=== PATIENT | female | born 1995 | race Caucasian/White ===

== ENCOUNTER 2020-01-18 13:53 | Inpatient (IN) | payer SELFPAY ==
[~2020-01-18] VITALS: Ht 167.6 cm; Wt 106.1 kg
[2020-01-18 14:03] VITALS: BP_SYST 141
--- NOTE | 2020-01-18 14:03 | NUR ---
Patient to ER bed 3 to gown for evaluation. Side rails up. Report given to JAK Menjivar.
[2020-01-18] MEDS ORDERED: NACL 0.9% 1,000 ML IV ONE (14:05)
[2020-01-18] MEDS ORDERED: ONDANSETRON HCL 4 MG/2 ML VIAL IVP ONE ×2 (14:15→17:15)
[2020-01-18] MEDS ORDERED: MORPHINE 2 MG/ML INJ. SYRINGE IVP ONE (14:15)
--- NOTE | 2020-01-18 14:15 | NUR ---
MD MCDONALD AT BEDSIDE ASSESSING PT.
--- NOTE | 2020-01-18 14:25 | NUR ---
RN ATTEMPTING TO OBTIAN BLOOD AND INSERT IV. 1 ST ATTEMPT VEIN BLEW. MOTHER AT BEDSIDE ASKS FOR ANOTHER RN TO TRY. RN REASSURED THE MOTHER THAT RN IS COMPETENT AND WILL NEED TO OBTAIN IV ACCESS. MOTHER CONTINUES TO PUT PRESSURE ON THE RN BY STANDING OVER HIM AND COMMENTING
[2020-01-18] MEDS ORDERED: MORPHINE 4 MG/ML INJ. SYRINGE IM ONE (14:45)
[2020-01-18] MEDS ORDERED: ONDANSETRON HCL 4 MG/2 ML VIAL IM ONE (14:45)
--- NOTE | 2020-01-18 14:57 | NUR ---
JAK HERRERA OBTAINED IV ACCESS OF 22G INTO THE RIGHT FA. BLOOD DRAWN AND PAIN MED GIVEN BEFORE PT WENT TO CT. HCG URINE NEGATIVE.
[2020-01-18 15:07] LABS: BASOPHILS % (AUTO) 0.2 % (0.0-2.0); EOSINOPHILS % (AUTO) 0.2 % (0.0-4.0); HEMATOCRIT 41.6 % (36-48); HEMOGLOBIN 14.2 g/dL (12.0-16.0); LYMPHOCYTES # (AUTO) 2.2 K/uL (1.0-5.5); MEAN CORPUSCULAR HEMOGLOBIN 27 pg (27-31); MEAN CORPUSCULAR HGB CONC 34 % (32-36); MEAN CORPUSCULAR VOLUME 79 fL (79.0-98.0); MONOCYTES # (AUTO) 1.3 K/uL (0.0-1.0); MONOCYTES % (AUTO) 8.5 % (1.7-9.3); NEUTROPHILS # (AUTO) 11.3 K/uL (1.8-7.7); NEUTROPHILS % (AUTO) 76.1 % (40.0-70.0); PLATELET COUNT (AUTO) 550 K/uL (130-430); RED BLOOD CELL COUNT(AUTO) 5.28 MIL/uL (4.2-6.2); RED CELL DISTRIBUTION WIDTH 12.1 % (9.0-15.0); WHITE BLOOD COUNT (AUTO) 14.9 K/uL (4.8-10.8)
[2020-01-18 15:16] LABS: CALCIUM 9.5 mg/dL (8.4-11.0); CREATININE 0.77 mg/dL (0.55-1.30)
[2020-01-18 15:19] LABS: POTASSIUM 2.7 mmol/L (3.5-5.1)
[2020-01-18 15:21] LABS: PROTHROMBIN TIME 10.5 SECS (9.5-12.5)
[2020-01-18 15:25] LABS: COLOR,URINE YELLOW (YELLOW); GLUCOSE,URINE NEGATIVE (NEGATIVE); KETONES,URINE 3+ (NEGATIVE); LEUKOCYTE ESTERASE ,URINE 1+ (NEGATIVE); NITRITE, URINE NEGATIVE (NEGATIVE); PROTEIN URINE 1+ (NEGATIVE); UROBILINOGEN,URINE 0.2 (0.2-1.0)
[2020-01-18 15:27] LABS: ALBUMIN 3.9 g/dL (3.4-4.8)
[2020-01-18] MEDS ORDERED: LEVOFLOXACIN 500 MG/D5W 100 ML IV ONE (15:30)
[2020-01-18] MEDS ORDERED: KCL 20 mEq in 100 mL (PREMIX) 100 ML IV ONE (15:30)
[2020-01-18] MEDS ORDERED: NACL 0.9% 2,000 ML IV ONE (15:30)
[2020-01-18] MEDS ORDERED: INSULIN REGULAR, HUMAN 10 UNITS/0.1 ML INJ IVP ONE (15:30)
[2020-01-18 15:38] LABS: BILIRUBIN,URINE NEGATIVE (NEGATIVE); BLOOD, URINE TRACE (NEGATIVE); CLARITY/URINE HAZY (CLEAR)
[2020-01-18 15:39] LABS: BACTERIA,URINE FEW /HPF (None Seen); RBC,URINE NONE SEEN /HPF (0-3)
[2020-01-18 15:40] LABS: MUCUS,URINE None Seen /LPF (None Seen)
--- NOTE | 2020-01-18 16:48 | NUR ---
Shante MACIAS started by RN @ 6249, completed @ 4993
[2020-01-18] MEDS ORDERED: MORPHINE 4 MG/ML INJ. SYRINGE IVP ONE (17:15)
--- NOTE | 2020-01-18 17:22 | NUR ---
Orders received from Dr. Anna, entered by RN. Called for bed assignment.
--- NOTE | 2020-01-18 17:26 | NUR ---
Patient will be admitted to care of Dr. Anna. Admitted to Tele unit. Will go to room 100B. Belongings list completed. Complete and up to date summary report printed. SBAR report to be given at bedside with opportunity for questions.
[2020-01-18] MEDS ORDERED: ONDANSETRON HCL 4 MG/2 ML VIAL IVP PRN (17:30)
[2020-01-18] MEDS ORDERED: DEXTROSE 50%-WATER 50 ML DISP.SYRIN IVP PRN (17:30)
[2020-01-18] MEDS ORDERED: D5W 1,000 ML IV PRN (17:30)
[2020-01-18] MEDS ORDERED: GLUCOSE 15 GM GEL (in 37.5 GM TUBE) PO PRN (17:30)
--- NOTE | 2020-01-18 17:50 | NUR ---
Maria Eugenia MACIAS started by RN @ 3654, completed @ 3255
[2020-01-18 18:04] VITALS: BP_SYST 153
--- NOTE | 2020-01-18 18:04 | NUR ---
admission: Received from ER on a gurney with the diagnosis of Dehydration, hypokalemia. Oriented x4. Oriented to room, call light within reach. Safety precautions initiated.
[2020-01-18] MEDS ORDERED: HYDR12.55 PO (18:21)
[2020-01-18] MEDS ORDERED: GLIP5TAB26 PO (18:21)
[2020-01-18] MEDS: METOCLOPRAMIDE HCL 10 MG/2 ML VIAL IVP SCH ×2 (18:27→23:43)
[2020-01-18] MEDS: FAMOTIDINE PF 20 MG/2 ML VIAL IVP SCH (18:28)
[2020-01-18] MEDS: NACL 0.9% 1,000 ML IV SCH (18:31)
[2020-01-18] MEDS ORDERED: GLIP10TA11 PO (18:47)
[2020-01-18] MEDS ORDERED: LISI-209 PO (18:47)
--- NOTE | 2020-01-18 18:48 | NUR ---
Patient is awake and oriented. Family at bedside. Pain is controlled at this time. Still nauseated. Medicated. IVF started. On clear liquid diet. Oriented to the room set up and call light use. Safety precautions in place. Call light within reach. Will endorse.
--- NOTE | 2020-01-18 20:46 | NUR ---
PAGED I PAGED DR QUINONES I SPOKE WITH CRISTIAN ENG
--- NOTE | 2020-01-18 21:00 | NUR ---
Opening notes Pt asleep, easily arousable. BP elevated 162/86, pt c/o severe abd pain and N/V. IVF infusing at ordered rate R FA 22G no s/s infiltration. Oriented to call light use. Medicated with Zofran 4mg IVP for N/V. Pt assisted to bathroom and pt voided. Mom at bedside. Call light within reach. To monitior.
[2020-01-18] MEDS: INSULIN REGULAR, HUMAN 100 UNITS/ML, 10 ML VIAL (humuLIN R) SUBCUT PRN (21:06)
--- NOTE | 2020-01-18 21:14 | NUR ---
PAGED I PAGED DR. QUINONES @ 2113 I SPOKE WITH EDD QUINONES CALLED BACK @ 2118
[2020-01-18 21:20] VITALS: BP_SYST 162
--- NOTE | 2020-01-18 21:25 | NUR ---
CALLED BACK Received call from Dr. Anna. Received order for pain med Dilaudid 1mg IVP Q4PRN and K rider w/ Lidocaine and UDS. Will carry out orders.
[2020-01-18] MEDS: HYDROmorphone 1 MG INJ. 1 MG/ML AMPUL IVP PRN (22:06)
[2020-01-18] MEDS ORDERED: POTASSIUM CHLORIDE 40 MEQ, LIDOCAINE JECT 2% PF 100 MG 50 MG in NS 250 ML IV ONE (23:00)
--- NOTE | 2020-01-18 23:53 | NUR ---
Spoke with Pharmacy Dung to clarify Ceftriaxone order, per mom pt's reaction to PCN is rash. Also clarified Potassium order to be mixed with Lidocaine. Will inform house sup.
[2020-01-19 00:02] VITALS: BP_SYST 108
--- NOTE | 2020-01-19 00:20 | NUR ---
Informed MD pt had approx 225ml of pink tinged emesis and Zofran given. Addendum: 01/19/20 at 0521 by Ronna Lopez RN Time occurred at 01/18/20 4146.
[2020-01-19] MEDS ORDERED: KCL 20 mEq in 100 mL (PREMIX) 200 ML IV ONE (01:40)
[2020-01-19] MEDS ORDERED: LIDOCAINE JECT 2% PF 100 MG/5ML SYRINGE ONE (01:41)
[2020-01-19] MEDS: NACL 0.9% 1,000 ML IV SCH ×3 (03:12→15:16)
[2020-01-19] MEDS: HYDROmorphone 1 MG INJ. 1 MG/ML AMPUL IVP PRN ×4 (03:18→20:14)
--- NOTE | 2020-01-19 03:20 | NUR ---
Pain Pt c/o abd pain. No s/s distress noted. K-rider infusing at this time R. FA 22G clear and patent. Call light remains within reach. Safety in place. Mother at bedside. To monitor.
[2020-01-19] MEDS: FAMOTIDINE PF 20 MG/2 ML VIAL IVP SCH ×2 (06:16→17:10)
[2020-01-19] MEDS: METOCLOPRAMIDE HCL 10 MG/2 ML VIAL IVP SCH ×3 (06:17→17:10)
[2020-01-19] MEDS: INSULIN REGULAR, HUMAN 100 UNITS/ML, 10 ML VIAL (humuLIN R) SUBCUT PRN (06:20)
--- NOTE | 2020-01-19 06:40 | NUR ---
Closing notes Pt awake, alert, assisted pt to the bathroom and pt voided. Urine for UDS sent to lab as ordered. K-rider infusing at ordered rate R. FA 22 no s/s infiltration. Call light within reach. Bed low, locked, siderails up x2. Safety maintained. Mom at bedside. To endorse to AM nurse.
[2020-01-19 07:22] VITALS: BP_SYST 128
[2020-01-19 07:24] LABS: BARBITURATE, URINE NEGATIVE (NEG <=200); BENZODIAZEPINE, URINE NEGATIVE (NEG <=150); CANNABINOID, URINE POSITIVE (NEG <=50); COCAINE, URINE NEGATIVE (NEG <=150); METHAMPHETAMINES SCREEN,URINE NEGATIVE (NEG <=500); OPIATE, URINE POSITIVE (NEG <=100); PHENCYCLIDINE SCREEN,URINE NEGATIVE (NEG <=25); URINE AMPHETAMINE NEGATIVE (NEG <=500); URINE METHADONE NEGATIVE (NEG <=200)
[2020-01-19 07:25] LABS: UR TRICYCLIC ANTIDEPRESSANTS NEGATIVE (NEG <=300); URINE OXYCODONE SCREEN NEGATIVE (NEG <=100); URINE PROPOXYPHENE SCREEN NEGATIVE (NEG <=300)
--- NOTE | 2020-01-19 07:25 | NUR ---
GI Patient complaining of mid abdominal discomfort bowel sound positive , no nausea, vitals sign stable , explained to patient pain management Dilaudid indication/side effect verbalized understanding.
[2020-01-19] MEDS: cefTRIAXone 1 GM in D5W 50 ML IV SCH (08:34)
--- NOTE | 2020-01-19 09:55 | NUR ---
Patient resting , UA positive for UTI , denies any dysuria ,IV antibiotic completed with out adverse reaction.
--- NOTE | 2020-01-19 11:30 | NUR ---
Blood mg/dl pre meal , patient refused for insulin coverage even after explaining the need , Dr. Anna informed.
[2020-01-19 11:48] LABS: CALCIUM 8.9 mg/dL (8.4-11.0); CREATININE 0.66 mg/dL (0.55-1.30)
[2020-01-19 11:59] LABS: POTASSIUM 2.9 mmol/L (3.5-5.1)
[2020-01-19 12:12] LABS: BASOPHILS % (AUTO) 0.2 % (0.0-2.0); EOSINOPHILS # (AUTO) 0.1 K/uL (0.0-0.4); EOSINOPHILS % (AUTO) 0.4 % (0.0-4.0); HEMATOCRIT 38.9 % (36-48); HEMOGLOBIN 13.1 g/dL (12.0-16.0); LYMPHOCYTES # (AUTO) 3.8 K/uL (1.0-5.5); LYMPHOCYTES % (AUTO) 27.8 % (20.5-51.5); MEAN CORPUSCULAR HEMOGLOBIN 27 pg (27-31); MEAN CORPUSCULAR HGB CONC 34 % (32-36); MEAN CORPUSCULAR VOLUME 80 fL (79.0-98.0); MONOCYTES % (AUTO) 7.4 % (1.7-9.3); NEUTROPHILS # (AUTO) 8.7 K/uL (1.8-7.7); NEUTROPHILS % (AUTO) 64.2 % (40.0-70.0); PLATELET COUNT (AUTO) 458 K/uL (130-430); RED BLOOD CELL COUNT(AUTO) 4.86 MIL/uL (4.2-6.2); RED CELL DISTRIBUTION WIDTH 12.2 % (9.0-15.0); WHITE BLOOD COUNT (AUTO) 13.6 K/uL (4.8-10.8)
[2020-01-19 12:16] LABS: ACETONE, SERUM SMALL (NEGATIVE)
[2020-01-19 12:22] VITALS: BP_SYST 102
[2020-01-19] MEDS ORDERED: POTASSIUM CHLORIDE 20 MEQ TAB.PRT.SR PO ONE (12:30)
[2020-01-19] MEDS ORDERED: POTASSIUM CHLORIDE 40 MEQ in NS 250 ML IV ONE (12:45)
[2020-01-19] MEDS ORDERED: PANTOPRAZOLE SODIUM 40 MG/VIAL (PROTONIX) IVP ONE (13:15)
[2020-01-19] MEDS ORDERED: CITALOPRAM HYDROBROMIDE 20 MG TABLET PO ONE (13:15)
[2020-01-19] MEDS ORDERED: MAG-AL HYDROX/SIMETH 30 ML UDC PO ONE (13:15)
[2020-01-19] MEDS ORDERED: MAG-AL HYDROX/SIMETH 30 ML UDC PO PRN (13:15)
--- NOTE | 2020-01-19 14:43 | NUR ---
PATIENT RESTING: Patient resting quietly. No acute distress noted after pain medication was given Vital signs within normal range.
[2020-01-19 16:30] VITALS: BP_SYST 108
--- NOTE | 2020-01-19 19:45 | NUR ---
OPENING NOTES Patient is resting in bed, alert, awake, oriented x 4, breathing evenly and nonlabored on room air, mother at bedside. Patient has an IV on the right forearm 22g, patent and benign, no s/s of infection or infiltration at this time, IVF running, patient is tolerating it well. Patient has no appetite, refused to eat, denies nausea/vomiting at this time. Educated patient on plan of care, fall/safety precautions, call light system, patient stated understanding with return demonstration. Bed is locked, armed, and at lowest position, will continue to monitor.
[2020-01-19 20:00] VITALS: BP_SYST 130
--- NOTE | 2020-01-19 20:15 | NUR ---
PAIN MEDICATION AND BS CHECKED Patient is resting in bed, awake, breathing evenly and nonlabored on room air, mother at bedside. Vital signs stable, patient complaining of severe epigastric pain, educated patient on pain medication, nonpharmacological interventions, patient stated understanding. Administered pain medication, patient tolerated it well. BS checked: 163, coverage needed but patient refused insulin coverage, patient refused to eat and would only drink apple juice. No other needs at this time, fall/safety precautions, will continue to monitor.
[2020-01-19] MEDS ORDERED: PANTOPRAZOLE SODIUM 40 MG/VIAL (PROTONIX) IVP SCH (21:00)
[2020-01-20 00:05] VITALS: BP_SYST 127
[2020-01-20] MEDS: METOCLOPRAMIDE HCL 10 MG/2 ML VIAL IVP SCH ×3 (01:08→11:46)
[2020-01-20] MEDS: NACL 0.9% 1,000 ML IV SCH ×3 (01:08→11:45)
[2020-01-20] MEDS: HYDROmorphone 1 MG INJ. 1 MG/ML AMPUL IVP PRN ×3 (01:09→12:51)
--- NOTE | 2020-01-20 01:10 | NUR ---
PAIN MEDICATION AND IVF REPLACED Patient is resting in bed, awake, breathing evenly and nonlabored on room air, mother at bedside. Vital signs stable, patient complaining of severe epigastric pain, educated patient on pain medication, nonpharmacological interventions, patient stated understanding. Administered pain medication, patient tolerated it well. Patient still refusing to eat and would only drink apple juice. IVF replaced, patient is tolerating it well. Assisted patient to and from the bathroom. No other needs at this time, fall/safety precautions, will continue to monitor.
[2020-01-20 06:43] LABS: BASOPHILS # (AUTO) 0.1 K/uL (0.0-0.2); BASOPHILS % (AUTO) 0.5 % (0.0-2.0); EOSINOPHILS # (AUTO) 0.1 K/uL (0.0-0.4); EOSINOPHILS % (AUTO) 0.8 % (0.0-4.0); HEMATOCRIT 35.1 % (36-48); HEMOGLOBIN 11.8 g/dL (12.0-16.0); LYMPHOCYTES # (AUTO) 4.1 K/uL (1.0-5.5); LYMPHOCYTES % (AUTO) 34.4 % (20.5-51.5); MEAN CORPUSCULAR HEMOGLOBIN 27 pg (27-31); MEAN CORPUSCULAR HGB CONC 34 % (32-36); MEAN CORPUSCULAR VOLUME 81 fL (79.0-98.0); MONOCYTES # (AUTO) 0.7 K/uL (0.0-1.0); MONOCYTES % (AUTO) 6.3 % (1.7-9.3); NEUTROPHILS # (AUTO) 6.9 K/uL (1.8-7.7); PLATELET COUNT (AUTO) 404 K/uL (130-430); RED BLOOD CELL COUNT(AUTO) 4.33 MIL/uL (4.2-6.2); WHITE BLOOD COUNT (AUTO) 11.8 K/uL (4.8-10.8)
[2020-01-20 06:52] LABS: CALCIUM 8.6 mg/dL (8.4-11.0); CREATININE 0.49 mg/dL (0.55-1.30)
[2020-01-20 07:04] LABS: POTASSIUM 2.9 mmol/L (3.5-5.1)
--- NOTE | 2020-01-20 07:04 | NUR ---
CRITICAL LAB VALUE REPORT FROM Lexis KRAUS: 2.9, DR. JONI BOYCE.
--- NOTE | 2020-01-20 07:22 | NUR ---
- PAGED -PAGED BENTLEY YO AT [phone] SPOKE WITH EXCHANGE.
--- NOTE | 2020-01-20 07:30 | NUR ---
opening note patient is resting in bed, mother in the room, alert and oriented, educated rehab consultant light system and plan of care, patient verbalized understanding, patient stated that she did not want the tele monitor on at this time, she wants to walk around and be out of the room for a while, educated on the importance of keeping it on, mother stated "she said she wants to walk around and not have it on, can you leave her alone and stop insisting" patient continued to walking in the halls, no signs of distress at this time, fall/safety precautions in place.
--- NOTE | 2020-01-20 07:30 | NUR ---
SPOKE WITH DR. QUINONES REGARDING CRITICAL LAB VALUE, DEREK ORDERED.
--- NOTE | 2020-01-20 07:39 | NUR ---
MD CARLI BATES CALLED AT SPOKE WITH DR.JANDIAL SCHERER RAJNISH WEAVING PROFESSOR.
[2020-01-20] MEDS: FAMOTIDINE PF 20 MG/2 ML VIAL IVP SCH (07:41)
[2020-01-20] MEDS: INSULIN REGULAR, HUMAN 100 UNITS/ML, 10 ML VIAL (humuLIN R) SUBCUT PRN ×2 (07:43→11:48)
--- NOTE | 2020-01-20 07:43 | NUR ---
CLOSING NOTES Patient is resting in bed, awake, breathing evenly and nonlabored on room air, mother at bedside. BS checked: 152, coverage needed but patient refused insulin coverage, patient refused to eat at this time but "would try to eat breakfast." Educated patient on due medications, patient stated understanding. Administered due medications, patient tolerated it well. Assisted patient to and from the bathroom. Needs met throughout the shift. No other needs at this time, fall/safety precautions, will endorse care to morning shift RN.
[2020-01-20] MEDS ORDERED: POTASSIUM CHLORIDE 40 MEQ in NS 250 ML IV ONE (07:45)
[2020-01-20 08:00] VITALS: BP_SYST 117
[2020-01-20] MEDS: cefTRIAXone 1 GM in D5W 50 ML IV SCH (08:22)
--- NOTE | 2020-01-20 08:23 | NUR ---
patient refused tele monitor patient resting in bed, mother present, educated patient and mother on the importance of keeping the monitor on and not taking it off, mother stated "my daughter is resting in bed already, we will let you know when you can put it back on, she is anxious and does not like having it on", no signs of distress at this time, no other needs addressed at this time.
[2020-01-20] MEDS ORDERED: CITALOPRAM HYDROBROMIDE 20 MG TABLET PO SCH (09:00)
--- NOTE | 2020-01-20 10:10 | NUR ---
Lexis RIDER patient resting in bed, drowsy at this time, mother at the bedside, educated on medication use and side effects, patient and mother verbalized understanding, patient tolerating well, asked patient if I can put the tele monitor back on her, mother stated to me "wait until she is more awake, I do not want you putting anything on her if she is asleep and does not know what you are doing", fall/safety precautions in place.
[2020-01-20 12:00] VITALS: BP_SYST 126
--- NOTE | 2020-01-20 12:24 | NUR ---
patient ambulating with mother in the halls, walking steady, no signs of distress at this time, fall/safety precautions in place.
[2020-01-20] MEDS ORDERED: LISI-209 PO (13:24)
[2020-01-20] MEDS ORDERED: GLIP10TA21 PO (13:24)
[2020-01-20] MEDS ORDERED: ONDA4TAB5 PO (13:26)
[2020-01-20] MEDS ORDERED: PRO40 PO (13:28)
--- NOTE | 2020-01-20 14:00 | NUR ---
Dr Anna rounds Dr Anna spoke to patient already about discharge, patient needs repeat labs and if okay she can go home, patient and mother verbalized understanding.
--- NOTE | 2020-01-20 15:13 | NUR ---
Appellate Conferee: PRIMER PRESS OPERATOR received a referral from MARIANN Renee PRIMER PRESS OPERATOR consulted with MARIANN Renee asking what are pts. needs. PRIMER PRESS OPERATOR was informed by MARIANN that she no longer needs to see pt. as she took care of the matter with pt. PRIMER PRESS OPERATOR will reamain available as needed.
[2020-01-20 15:35] LABS: CALCIUM 9.2 mg/dL (8.4-11.0); CREATININE 0.61 mg/dL (0.55-1.30); POTASSIUM 3.3 mmol/L (3.5-5.1)
--- NOTE | 2020-01-20 15:57 | NUR ---
PAGED PAGED ALLY YO AT [phone] SPOKE WITH AMY.
[2020-01-20 16:18] VITALS: BP_SYST 124
[2020-01-20 16:21] VITALS: BP_SYST 124
[2020-01-20] MEDS ORDERED: POTA20TA83 PO (16:30)
[2020-01-20] MEDS ORDERED: POTASSIUM CHLORIDE 20 MEQ TAB.PRT.SR PO ONE ×2 (16:30)
--- NOTE | 2020-01-20 16:55 | NUR ---
D/C Patient Patient given medication reconciliation form and D/C instructions. Exit Care provided. Patient verbalized understanding. MD discussed with patient the results and treatment provided. Ambulatory with steady gait for discharge to home. Patient in stable condition, ID band removed. IV catheter removed, intact and dressing applied, no active bleeding. Rx of glipizide, lisinopril, zofran, protonix, kdur given. Patient educated on pain management. All belongings sent with patient.
== END 2020-01-20 16:55 | disposition home or self-care (01) | DRG 918 ==
LOC: SED 13:53 → STU 17:20
PROVIDERS: ADMIT Internal Medicine; ATTEND Internal Medicine
DX: T40.7X1A Poisoning by cannabis (derivatives), accidental (unintentional), initial encounter (principal); E87.1 Hypo-osmolality and hyponatremia; R11.10 Vomiting, unspecified; I10 Essential (primary) hypertension; E87.6 Hypokalemia; F19.10 Other psychoactive substance abuse, uncomplicated; K21.9 Gastro-esophageal reflux disease without esophagitis; E66.9 Obesity, unspecified; E11.43 Type 2 diabetes mellitus with diabetic autonomic (poly)neuropathy; E86.0 Dehydration; K31.84 Gastroparesis; Z79.899 Other long term (current) drug therapy; Z68.37 Body mass index [BMI] 37.0-37.9, adult; Y92.89 Other specified places as the place of occurrence of the external cause; Z88.0 Allergy status to penicillin; Z88.8 Allergy status to other drugs, medicaments and biological substances; Z79.4 Long term (current) use of insulin
CPT/HCPCS: 36415; 80048; 80053; 80307; 81000-TC; 82009-TC; 82150-TC; 82962; 83605; 83690-TC; 83735-TC; 84311; 84703; 85025; 85610-TC; 85730-TC; 87040-TC; 87086; 96365; 96372; 96375; 96376; 99285; C9113; G0378; J0696; J1170; J1815; J1956; J2270; J2405; J2765; J3480; J3490; J7030; J7050; J7060